=== PATIENT | female | born 2000 | race Caucasian/White ===

== ENCOUNTER 2020-11-10 22:54 | Emergency (ER) | payer MEDICAID, SELFPAY ==
--- NOTE | ~2020-11-10 | XR_ITS ---
EXAMINATION: XR CHEST CLINICAL INFORMATION: Shortness of breath COMPARISON: None TECHNIQUE: 2 views of the chest were obtained. FINDINGS: The lungs are well expanded. There is no focal consolidation, edema, or effusion. No pneumothorax. The cardiomediastinal silhouette is within normal limits. No acute osseous abnormality. XR/XR chest 2V IMPRESSION: Clear lungs.
[2020-11-10 22:56] VITALS: BP 112/67; PULSE 82; RESP 18; TEMP 36.8; O2SAT 99; BMI 25.5
--- NOTE | 2020-11-10 23:19 | ECG_ITS ---
Test Reason : SOB Blood Pressure : / mmHG Vent. Rate : 073 BPM Atrial Rate : 073 BPM P-R Int : 152 ms QRS Dur : 080 ms QT Int : 394 ms P-R-T Axes : 057 060 044 degrees QTc Int : 434 ms Normal sinus rhythm Normal ECG No previous ECGs available Referred By: Ernesto Townsend Electronically Signed By:DIOGO CARY
[2020-11-10] MEDS: LORazepam 1 MG TABLET PO (23:26)
--- NOTE | 2020-11-10 23:32 | ED.GENADULT ---
HPI - General Adult General Chief complaint: Dyspnea Stated complaint: sob Time Seen by Provider: 11/10/20 23:19 Source: patient Limitations: no limitations History of Present Illness HPI narrative: this is a 20-year-old female who complains of feeling like she is unable to catch her breath for about 3 days. She describes her symptoms as mild. She denies any chest pain, dizziness, palpitations. She does have occasional upper abdominal pain. She denies any pain or swelling in her legs. She denies being . She does have a history of anemia. She denies heavy menstrual periods. She has not had any cough or fever Related Data Previous Rx's Medication Instructions Recorded hydroxyzine HCl 25 mg PO TID PRN #30 tab 11/11/20 Allergies Allergy/AdvReac Type Severity Reaction Status Date / Time amoxicillin [From Augmentin] Allergy Rash Verified 11/10/20 23:35 clavulanic acid Allergy Rash Verified 11/10/20 23:35 [From Augmentin] Review of Systems Review of Systems: Yes all other systems are reviewed and are negative Constitutional: Constitutional: Reports as per HPI and Denies fever(s) Eyes: Eyes: Reports as per HPI and Reports no additional eye complaints ENT: Reports system reviewed and no additional complaints, except as documented, Reports as per HPI, Denies nasal congestion, Denies nasal discharge and Denies sore throat Cardiovascular: Cardiovascular: Reports as per HPI, Denies chest pain and Reports dyspnea Respiratory: Respiratory: Reports as per HPI, Denies cough and Reports dyspnea Gastrointestinal: Gastrointestinal: Reports as per HPI, Denies abdominal pain, Denies diarrhea and Denies vomiting Genitourinary: Genitourinary: Reports as per HPI, Denies hematuria, Denies urinary frequency and Denies dysuria Musculoskeletal: Musculoskeletal: Reports no additional musculoskeletal complaints and Denies numbness Integumentary/Breasts: Skin/Breast: Reports as per HPI and Denies rash Neurologic: Reports as per HPI, Denies focal weakness, Denies numbness and Denies Sensory deficit (Neuro) Psychiatric: Psychiatric: Reports no additional psychiatric complaints and Reports as per HPI Endocrine: Endocrine: Reports no additional endocrine complaints and Reports as per HPI Hematologic/Lymphatic: Hematologic/Lymphatic: Reports no additional hematologic/lymphatic complaints, Reports as per HPI and Reports other (No peripheral edema) [facility] Past Medical History Medical History (Updated 07/08/21 @ 00:47 by Ernesto Townsend MD) Asthma Social History Social History Alcohol intake: current Alcohol intake frequency: holidays/special occasions only Patient Tobacco Use Status: Never used Tobacco Use of substances other than those prescribed or required for medical reasons: Yes Substance Use Type: Marijuana Advance Directives: No Advance Directives Information Provided: No Patient : No Physical Exam Vital Signs: Vital Signs: Last Vital Signs Temp 98.2 F 11/10/20 22:56 Pulse 64 11/11/20 00:00 Resp 16 11/11/20 00:00 BP 107/70 11/11/20 00:00 Pulse Ox 100 11/11/20 00:00 Body Mass Index 25.5 Const: General: cooperative, no acute distress and alert Orientation/consciousness: patient oriented x3 HENMT: Head: Yes normal to inspection Eyes: General: appearance normal, both eyes and all related structures Eyelids: Yes eyelids normal Conjunctivae: conjunctivae normal Pupils: Equal, round and reactive pupils present Neck: Neck: Yes normal visual inspection and Yes supple Chest: Chest palpation & inspection: normal inspection of the chest Resp: Effort & Inspection: normal respiratory effort Auscultation: clear to auscultation bilaterally Cardio: Rate: regular rate Rhythm: regular rhythm Heart sounds: S1 normal heart sound present, S2 normal heart sound present, no gallops, no murmurs and no rubs GI: Palpation (GI): Soft to palpation, nontender and Other GI palpation findings present (Non-distended) Auscultation: normal bowel sounds Skin: General skin exam: no rashes or lesions noted Neuro: General: patient oriented x3, no focal motor deficits and CN's II-XI intact bilaterally Cranial nerves: Yes Equal, round and reactive pupils present Cognition (Neuro): normal cognition Motor exam (neuro): 5/5 motor strength present throughout Sensory Exam: No Sensory deficit (Neuro) Extrem: General: Yes normal to inspection and Yes no pedal edema Psych: Appearance: grossly normal Affect: normal affect Medical Decision Making MDM Narrative Medical decision making narrative: patient with a sense of dyspnea, feels like she can not quite get a deep enough breath. Patient does admit to increased stress, denies panic attacks. Patient had a normal exam. EKG chest x-ray, CBC, chemistry, all unremarkable. Patient has no chest pain. No clinical suspicion for pulmonary embolism. Patient has history of anemia but is not anemic. Will prescribe hydroxyzine to see if this helps with her symptoms and she can follow up with Her primary care physician. Lab Data Result diagrams: 11/10/20 23:40 11/10/20 23:40 Labs: Lab Results 11/10/20 11/10/20 11/11/20 Range/Units 23:40 23:40 00:03 WBC 11.8 H (4.8-10.8) X10*3/uL RBC 4.31 (4.20-5.50) X10*6/uL Hgb 12.9 (12.0-16.0) g/dl Hct 38.8 (37-47) % MCV 90.0 (80-98) fL MCH 29.9 (27.0-33.0) pg MCHC 33.2 (31.0-35.0) g/dl RDW 13.1 (11.0-16.0) % Plt Count TNP MPV 12.3 (9.4-12.3) fL Immature Gran % (Auto) Cancelled Neut % (Auto) Cancelled Lymph % (Auto) Cancelled [place] % (Auto) Cancelled Eos % (Auto) Cancelled Baso % (Auto) Cancelled Lymph # (Auto) Cancelled [place] # (Auto) Cancelled Eos # (Auto) Cancelled Baso # (Auto) Cancelled Abs Immat Gran (auto) Cancelled Absolute Neuts (auto) Cancelled Absolute Nucleated RBC 0.000 (0.0-0.012) X10*3/uL Nucleated RBC % (auto) 0.0 (0.0-0.2) /100WBC Neutrophils % (Manual) 64 (45-73) % Band Neutrophils % 0 L (3-5) % Lymphocytes % (Manual) 25 (20-40) % Monocytes % (Manual) 9 (2-11) % Eosinophils % (Manual) 2 (0-4) % Abs Neuts (Manual) 7.6 (2.2-7.9) X10*3/uL Lymphocytes # (Manual) 3.0 (0.6-4.8) X10*3/uL Monocytes # (Manual) 1.1 (0.0-1.2) X10*3/uL Eosinophils # (Manual) 0.2 (0.0-0.8) X10*3/UL Platelet Estimate NORMAL (NORMAL) Large Platelets PRESENT Plt Morphology Comment NOTED RBC Morphology NORMAL Sodium 138 (135-145) mmol/L Potassium 4.1 (3.3-5.1) mmol/L Chloride 107 (96-108) mmol/L Carbon Dioxide 20 L (22-29) mmol/L Anion Gap 15 (12-20) BUN 13 (9-16) mg/dL Creatinine 0.84 (0.5-1.4) mg/dL Estim Creat Clear Calc 84.7 Estimated GFR > 60 Random Glucose 89 (60-115) mg/dL Calcium 9.6 (8.4-10.2) mg/dL Urine Test NEGATIVE (NEGATIVE) Imaging Data Chest x-ray: Radiologist's impression: Patient: Beryl MaloneyMR#: [id number]: 2000Acct:[id number]/Sex: 20 / FADM Date: 11/10/20Loc: EDAttending Dr: Ordering Physician: Ernesto Townsend MD Date of Service: 11/11/20 Procedure(s): XR chest 2V Accession Number(s): [id number] cc: Ernesto Townsend MD~ EXAMINATION: XR CHEST CLINICAL INFORMATION: Shortness of breath COMPARISON: None TECHNIQUE: 2 views of the chest were obtained. FINDINGS: The lungs are well expanded. There is no focal consolidation, edema, or effusion. No pneumothorax. The cardiomediastinal silhouette is within normal limits. No acute osseous abnormality. XR/XR chest 2V IMPRESSION: Clear lungs. ECG Data Attestation: I personally reviewed and interpreted this ECG as follows: Interpretation: sinus rhythm with a rate of 73. No ST elevation depression. No ectopy. Normal QRS axis Discharge Plan Discharge Clinical Impression: Anxiety, Dyspnea Patient Disposition: Home, Self-Care Instructions: Dyspnea (ED), Anxiety (ED) Additional Instructions: follow-up with your primary care physician. Take hydroxyzine as prescribed. Return for any new or worsened symptoms such as chest pain, or shortness of breath Prescriptions: New hydroxyzine HCl 25 mg tablet 25 mg PO TID PRN (Reason: anxiety) Qty: 30 RF: 0 Interventions: ED Discharge Assessment Last Done: 11/11/20 00:53 Discharge Date/Time: 11/11/20 01:11
[2020-11-10 23:45] LABS: Hematocrit 38.8 % (37-47); PLT CLUMP 1; Red Cell Distribution Width 13.1 % (11.0-16.0); WBC ABN SCTR FOR CBC 1
[2020-11-10 23:47] LABS: Hemoglobin 12.9 g/dl (12.0-16.0); Mean Corpuscular HGB Conc 33.2 g/dl (31.0-35.0); Mean Corpuscular Hemoglobin 29.9 pg (27.0-33.0); Mean Platelet Volume 12.3 fL (9.4-12.3); Red Blood Count 4.31 X10*6/uL (4.20-5.50)
[2020-11-11] VITALS: BP 107/70; PULSE 64; RESP 16; O2SAT 100
[2020-11-11 00:15] LABS: UPreg QC Valid YES; Urine Pregnancy NEGATIVE (NEGATIVE)
[2020-11-11 00:18] LABS: Carbon Dioxide 20 mmol/L (22-29); Chloride 107 mmol/L (96-108); Potassium 4.1 mmol/L (3.3-5.1); Sodium 138 mmol/L (135-145)
[2020-11-11 00:19] LABS: Anion Gap 15 (12-20); Blood Urea Nitrogen 13 mg/dL (9-16); Calcium 9.6 mg/dL (8.4-10.2); Creatinine Clr Calc Pharmacy 84.7; Estimated Glomerular Filt Rate > 60; Glucose Random 89 mg/dL (60-115)
[2020-11-11 00:20] LABS: White Blood Count 11.8 X10*3/uL (4.8-10.8)
[2020-11-11 00:23] LABS: Band Neutrophils Percent 0 % (3-5); Eosinophils Absolute Manual 0.2 X10*3/UL (0.0-0.8); Eosinophils Percent Manual 2 % (0-4); Lymphocytes Percent Manual 25 % (20-40); Monocytes Absolute Manual 1.1 X10*3/uL (0.0-1.2); Monocytes Percent Manual 9 % (2-11); Neutrophils Absolute Manual 7.6 X10*3/uL (2.2-7.9); Neutrophils Percent Manual 64 % (45-73); RBC Morphology NORMAL
[2020-11-11 00:24] LABS: Large Platelet PRESENT; Platelet Estimate NORMAL (NORMAL); Platelet Morphology Comment NOTED
== END 2020-11-11 01:11 | disposition home or self-care (01) ==
PROVIDERS: Emergency Provider Emergency Medicine
DX: R06.00 Dyspnea, unspecified (principal); F41.9 Anxiety disorder, unspecified; J45.909 Unspecified asthma, uncomplicated
CPT/HCPCS: 36415; 71046; 80048; 81025; 85007; 85027; 93005; 99283; 99285

== ENCOUNTER 2020-11-30 16:50 | Emergency (ER) | payer MEDICAID, SELFPAY ==
[2020-11-30 18:04] VITALS: BP 147/66; PULSE 67; RESP 18; TEMP 37.1; O2SAT 100; BMI 25.2
--- NOTE | 2020-11-30 18:26 | ED_ITS ---
HPI - Dental/Oral General Chief complaint: Dental/Oral Stated complaint: DENTAL PAIN Time Seen by Provider: 11/30/20 18:26 Source: patient Mode of arrival: ambulatory Limitations: no limitations History of Present Illness HPI Narrative: 20 y/o female presenting with 4 days of left lower dental pain. She has had a chip in the affected tooth for an unknown amount of time with worsening pain since last weekend. She feels like there is pressure under the tooth and it sends a shooting pain whenever there is pressure on top of the tooth. No facial swelling, fever or trismus. She has been taking motrin, aleve and aspirin without improvement. She also has been using topical agents with no improvement. She has not seen a dentist in several years. MD Complaint: tooth pain Location: Tooth # Teeth map: 1. exposed dentin anteriorly, tender Onset (ago): day(s) (4) Duration: constant Severity: severe Severity scale (1-10): 9 Relieving factors: nothing Exacerbating factors: chewing, cold and heat Context: history of dental caries and poor dental care Associated symptoms: ear pain Treatment prior to arrival: topical analgesic and oral analgesic Related Data Previous Rx's Medication Instructions Recorded hydroxyzine HCl 25 mg PO TID PRN #30 tab 11/11/20 clindamycin HCl 300 mg PO Q6H 7 Days #28 cap 11/30/20 ibuprofen 600 mg PO Q8H PRN #20 tab 11/30/20 tramadol 50 mg PO Q6H PRN #7 tab 11/30/20 Allergies Allergy/AdvReac Type Severity Reaction Status Date / Time amoxicillin [From Augmentin] Allergy Rash Verified 11/30/20 18:03 clavulanic acid Allergy Rash Verified 11/30/20 18:03 [From Augmentin] Review of Systems Review of Systems: Constitutional: No Fever, No Chills ENT/Mouth: No sore throat, No Rhinorrhea, No Swallowing Difficulty, +dental pain Eyes: No Eye Pain, No Swelling, No Redness Cardiovascular: No Chest Pain, No SOB Respiratory: No Cough, No Sputum Gastrointestinal: No Nausea, No Vomiting Neuro: + Headache PMFSH Past Medical History Medical History (Updated 11/30/20 @ 18:33 by EDWIN Delaney) Asthma Social History Social History Alcohol intake: current Alcohol intake frequency: holidays/special occasions only Patient Tobacco Use Status: Never used Tobacco Substance Use Type: Marijuana Advance Directives: No Advance Directives Information Provided: No Patient : No Physical Exam Vital Signs: Vital Signs: Last Vital Signs Temp 98.7 F 11/30/20 18:04 Pulse 67 11/30/20 18:04 Resp 18 11/30/20 18:04 BP 147/66 H 11/30/20 18:04 Pulse Ox 100 11/30/20 18:04 Body Mass Index 25.2 Const: General: cooperative, healthy appearing and no acute distress Orien tation/consciousness: patient oriented x3 HENMT: Head: Yes normal to inspection, Yes normocephalic and Yes atraumatic Ears: hearing grossly normal bilaterally General nose exam: Normal external nose present and Normal nares present Face and sinus: Yes normal facial exam, Yes sinuses nontender and Yes face symmetric Mouth: Normal oral and palatal mucosa present, lip normal, tongue normal, oropharynx normal and moist mucous membranes Teeth and gingiva: abnormal tooth and associated gingiva lower left second molar tender, enamel fractured and dentin fractured and gingiva abnormal diffusely erythematous and tender; without any purulent discharge Throat: Yes posterior oropharynx normal, Yes tonsils normal and Yes uvula midline Eyes: General: appearance normal, both eyes and all related structures Neck: Neck: Yes normal visual inspection, Yes full ROM and Yes no lymphadenopathy Chest: Chest palpation & inspection: normal inspection of the chest Resp: Effort & Inspection: normal respiratory effort and able to speak in complete sentences Skin: General skin exam: no rashes or lesions noted Neuro: General: patient oriented x3 Extrem: General: Yes normal to inspection Psych: Appearance: grossly normal and well kempt Course Course Course Narrative: 20 y/o female presenting with left lower dental pain x4 days. History of fractured tooth, unknown duration. No palpable abscess at this time. Given her reports of pain below the tooth will start abx and pain control. Given emergency dental list and encouraged to call them 1st thing tomorrow. She is stable for d/c home with abx, NSAID, and tramadol for severe pain. Patient agrees with plan. Critical Care Time Critical Care Time Critical Care Time: No Discharge Plan Discharge Clinical Impression: Toothache Patient Disposition: Home, Self-Care Instructions: Toothache (ED) Additional Instructions: Take the prescribed antibiotics as directed. Take ibuprofen 600 mg every 6-8 hours, take with food. Take Tramadol as needed for severe pain. Do not drive after taking this m edication. Follow up with a Dentist [facility]. List was provided to you. If you develop new or worsening symptoms call 911 or come back to the ER for further evaluation. Prescriptions: New ibuprofen 600 mg tablet 600 mg PO Q8H PRN (Reason: pain) Qty: 20 RF: 0 clindamycin HCl 300 mg capsule 300 mg PO Q6H 7 Days Qty: 28 RF: 0 tramadol 50 mg tablet 50 mg PO Q6H PRN (Reason: pain) Qty: 7 RF: 0 No Action hydroxyzine HCl 25 mg tablet 25 mg PO TID PRN (Reason: anxiety) Qty: 30 RF: 0
== END 2020-11-30 19:14 | disposition home or self-care (01) ==
LOC: HO.ED 18:35
PROVIDERS: Emergency Provider Emergency Medicine
DX: K08.89 Other specified disorders of teeth and supporting structures (principal)
CPT/HCPCS: 99283